=== PATIENT | male | born 1970 | race Caucasian/White ===

== ENCOUNTER 2024-01-31 08:20 | Outpatient (CLI) | payer OTHER ==
--- NOTE | 2024-01-31 09:02 | Sleep Patient Instructions ---
Sleep Center Visit Summary - Patient Visit Information Reason for Visit: Initial consultation - Patient Instructions Additional Instructions: You will continue with BIPAP therapy with pressure set at 15.2/13 cmH2O. A supply prescription will be updated with your DME. We encourage you to continue to try to lose weight. Please follow up with the sleep care office in 1 year. - Clinic Information Contact: [facility] [address] [place] [address] [email or web address] T: [phone]
--- NOTE | 2024-01-31 09:09 | SLEEP CARE CONSULTATION ---
Information from patient questionnaire entered by Radha Baum. I have reviewed and concur with the information entered by Radha Baum. This document represents the service I personally performed and the decisions made by me, Sallie Marvin ARNP. History of Present Illness Service Date and Time: 01/31/2024 0820 Reason for Visit: New patient, Previously diagnosed sleep apnea, sleep apnea on CPAP therapy Usual bedtime: 9PM Time it takes to fall asleep: 10MINS Snores at night: Yes Number of times waking at night: 1-2 Reasons for waking at night: reports: Bathroom Toss, Turn, or Twitch while sleeping: Yes Recalls having dreams: No Usually gets out of bed at: 2080-8959 Feels refreshed in the morning: Yes Morning headache: No Sleepy or fatigued during the day: No Ever fallen asleep while driving: No Takes day naps: No Dreams during day naps: No Prior sleep studies: Yes Year and Where: [facility] Additional HPI information: ONEYDA RODRIGUEZ was previously diagnosed to have severe, AHI 34.3, obstructive sleep apnea-hypopnea syndrome as seen in sleep study dated 06/04/2019 at [facility] and comes in today for BIPAP therapy. - Parasomnia Symptoms Ever been unable to move upon waking from sleep: No Walks in sleep: No Talks in sleep: No Ever acted out dreams in sleep: No Ever felt weak in the knees when startled or emotional: No Bothered by creepy, crawly, restless sensations in legs: No Problems with memory or concentration: No CPAP Compliance Data - Data Reviewed with Patient Average duration of nightly device use: 7 hours 17 minutes Compliance rate %: 92 (84/90 days used) Current pressure setting (cmH2O): 15.2/13 Average residual AHI: 2.4 Central apnea: 1.3 Obstructive apnea: 0.5 Hypopnea: 0.5 Average large leak: 0.8 L/min Compliance data discussion: He has an AirCurve 10 VAuto that was set up 06/19/2019. He is using a ResMed F20 small cushion. He is getting his supplies from [employer] without any problems. He has a backup machine AirCurve 10 that he uses when travelling. Subjective Missed days of use due to: reports: travel (uses different machine when travelling) Patient concerns: reports: air blowing in eyes (little bit). denies: aerophagia, mask discomfort, mask leak noise, condensation in mask/hose, nasal congestion, dry mouth, nose, throat, epistaxis Observed to snore while using device: No Current pressure setting perceived as: comfortable On therapy, patient: reports: sleeping better, awakening more refreshed, being more awake and alert during the day, more rested overall. 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 Patient is and lives in . Have you smoked in the past 12 months: No Alcohol use: Yes Alcohol amount and frequency: 1 WEEKLY Caffeine use: No Family History Family history of sleep disordered breathing: Yes Family Hx Sleep Apnea: Father: Sleep apnea - Untreated, Grandparent: Snoring Allergies and Home Medications Known drug allergies: No Drug allergies reviewed: Yes Home medication list reviewed: Yes (as listed) Allergy and home medication list: Allergies No Known Drug Allergies Allergy (Verified 01/31/24 08:38) Home Medications Multivitamin See Rx Instructions .ROUTE .COMPLEX 01/31/24 [History] allopurinoL [Allopurinol] See Rx Instructions .ROUTE .COMPLEX 01/31/24 [History] Review of Systems Weight gain over past 5 years: 20 Weight loss over past 5 years: 10 Cardiovascular: denies: high blood pressure Respiratory: denies: shortness of breath Neurological: denies: headaches Psychiatric: denies: anxiety, depression Ear/Nose/Throat: denies: tonsillectomy, wisdom teeth removed Endocrine: reports: excessive thirst Physical Exam Vital signs obtained and entered by: RADHA Kelly MA Blood Pressure: 123/80 (RIGHT ARM) Cuff size: regular Heart Rate: 76 O2 Saturation: 96 Height: 5 ft 11.25 in Weight: 333 lb Body Mass Index: 46.0 BMI Classification: Morbidly Obese Neck circumference: 20 Heart: regular rate and rhythm Lungs: clear bilaterally Impression and Plan 1. Obstructive Sleep Apnea-Hypopnea Syndrome, severe, with good treatment compliance and good apnea control. On BIPAP therapy, the patient has better sleep quality and is more rested overall. He has significant improvement of his sleep apnea. He had a second machine that he says is set as a CPAP that he uses when traveling. He will try get us a copy of the SD download so I can compare therapy on this machine and adjust it as needed. He has no complaints or issues with CPAP use. He worked out the mask seal problem by changing the size of cushion to small with his F20 mask. He will be eligible for a new device in June 2024. He voiced understanding. Patient's apnea severity and rationale for treatment to reduce apnea, improve sleep quality and reduce cardiovascular and cerebrovascular events was reviewed. 2. Obesity, unspecified. Currently patients BMI is 46. Obesity increases the risk of apnea, BIPAP pressure requirements and overall health risks especially cardiovascular and diabetes. Thus patient is advised to lose weight. * Continue BIPAP pressure at 15.2/13 cmH2O with 2.2 cmH2O pressure support * Update supply prescription * Notify me if snoring with mask or feeling that the pressure is too much or too little * Attempt to lose weight * Call this office if any problems using BIPAP * Return for follow up in 12 months, or sooner if concerns arise Counseling Topics: Spare mask, Weight loss health impact Prescriptions: Device supplies Follow up with Sleep Care in: 1 year Visit Type: In Office Time Spent with Patient (minutes): 31 Provider Statement: I spent 100% of the Face to Face Visit with the patient with greater than 50% spent counseling the patient and coordination of care.
[2024-01-31 09:13] VITALS: BP 123/80; O2SAT 96
== END 2024-01-31 08:21 | disposition home or self-care (01) ==
LOC: SC 08:20
PROVIDERS: ATTEND Nurse Practitioner Family
DX: G47.33 Obstructive sleep apnea (adult) (pediatric) (principal); E66.01 Morbid (severe) obesity due to excess calories; Z68.42 Body mass index [BMI] 45.0-49.9, adult
CPT/HCPCS: 99203; 99212